=== PATIENT | male | born 1975 | race African-American/Black ===

== ENCOUNTER 2025-02-16 09:54 | Day surgery (SDC) | payer BC ==
[~2025-02-16 09:54] MED LIST: Sodium Chloride 0.9% 10 ML Syringe FLUSH PRN; Sodium Chloride 0.9% 10 ML Syringe FLUSH SCH
[2025-02-16] MEDS ORDERED: fentaNYL 100 MCG/2 ML SDV ONE (10:30)
[2025-02-16] MEDS ORDERED: Propofol 200 MG/20 ML SDV ONE ×2 (10:30→11:02)
[2025-02-16] MEDS: Lactated Ringers 1,000 ML IV SCH (10:30)
[2025-02-16] MEDS ORDERED: Midazolam 1 MG/ML 2 ML SDV ONE (10:31)
[2025-02-16] MEDS ORDERED: EPINEPHrine 1 MG/ML SDV ONE (10:36)
[2025-02-16] MEDS ORDERED: Lidocaine 1% with EPINEPHrine 1:100,000 20 ML MDV ONE (10:37)
[2025-02-16] MEDS ORDERED: Lidocaine 1% 4 ML ONE (10:39)
== END 2025-02-16 13:05 | disposition home or self-care (01) ==
LOC: JD.SDS 09:54
PROVIDERS: ATTEND Surgery
DX: D17.24 Benign lipomatous neoplasm of skin and subcutaneous tissue of left leg (principal); Z79.899 Other long term (current) drug therapy
CPT/HCPCS: 27632; J0169; J0665; J2003; J2004; J2250; J2704; J3010; J7120; 00400